=== PATIENT | male | born 1965 | race Caucasian/White ===

== ENCOUNTER 2021-04-27 09:52 | Emergency (ER) | payer OTHER ==
[~2021-04-27] VITALS: Ht 170.2 cm; Wt 68.0 kg
[2021-04-27 09:55] VITALS: BP_SYST 144
[2021-04-27] MEDS ORDERED: KETOROLAC TROMETHAMINE 30 MG VIAL IM ONE (10:00)
[2021-04-27] MEDS ORDERED: NAPR-1172 PO (10:01)
[2021-04-27 10:40] VITALS: BP_SYST 144
== END 2021-04-27 10:40 | disposition home or self-care (01) ==
LOC: SED 09:52
DX: M79.671 Pain in right foot (principal); M79.672 Pain in left foot; Z79.899 Other long term (current) drug therapy
CPT/HCPCS: 96372; 99283; J1885